=== PATIENT | male | born 1955 | race African-American/Black ===

== ENCOUNTER 2017-10-18 09:58 | Emergency (ER) | payer OTHER ==
[~2017-10-18] VITALS: Ht 177.8 cm; Wt 73.0 kg
[~2017-10-18 09:58] MED LIST: MOTRIN
[2017-10-18 10:08] VITALS: BP 139/103
== END 2017-10-18 11:48 | disposition left against medical advice (07) ==
LOC: ER 11:39
DX: S00.31XA Abrasion of nose, initial encounter (principal); M25.532 Pain in left wrist; I10 Essential (primary) hypertension; F12.10 Cannabis abuse, uncomplicated; F17.200 Nicotine dependence, unspecified, uncomplicated; Z53.21 Procedure and treatment not carried out due to patient leaving prior to being seen by health care provider; W18.39XA Other fall on same level, initial encounter; Y93.89 Activity, other specified; Y92.89 Other specified places as the place of occurrence of the external cause; Y99.8 Other external cause status